=== PATIENT | male | born 1960 | race Caucasian/White ===

== ENCOUNTER 2021-07-20 08:20 | Outpatient (CLI) | payer BC ==
[2021-07-20 09:52] LABS: #Eosinphils 0.1 10x3/uL (0.0-0.5); #Monocytes 0.6 10x3/uL (0.0-1.1); #Neutrophils 4.2 10x3/uL (1.5-8.4); %Basophils 0.6 % (0.0-2.0); %Eosinophils 1.7 % (0.0-6.0); %Lymphocytes 23.9 % (18.0-47.0); %Monocytes 8.7 % (0.0-10.0); %Neutrophils 64.3 % (40.0-75.0); Hemoglobin 14.9 g/dL (13.5-17.5); Mean Corpuscular Hemoglobin 28.8 pg (27.0-33.0); Mean Corpuscular Volume 87.3 fl (81.2-95.1); Mean Platelet Volume 12.2 fl (7.4-10.4); Platelet Count 179 10x3/uL (150-450); RBC Distribution Width 13.7 % (11.5-14.5); Red Blood Cell (RBC) Count 5.18 10x6/uL (4.32-5.72); White Blood Cell (WBC) Count 6.6 10x3/uL (3.5-10.5)
[2021-07-20 10:53] LABS: Anion Gap 12 mmol/L (10-20); BUN (Urea Nitrogen) 17 mg/dL (8.4-25.7); Calc. Creatinine Clearance 0 mL/min (70-130); Calcium 9.5 mg/dL (7.8-10.44); Carbon Dioxide 27 mmol/L (22-29); Chloride 105 mmol/L (98-107); Glucose 84 mg/dL (70-105); Potassium 4.3 mmol/L (3.5-5.1); Sodium 140 mmol/L (136-145)
== END 2021-07-20 08:21 | disposition home or self-care (01) ==
LOC: LABBT 08:20
PROVIDERS: ATTEND Internal Medicine Cardiovascular Disease
DX: Z01.812 Encounter for preprocedural laboratory examination (principal); I33.0 Acute and subacute infective endocarditis; Z20.822 Contact with and (suspected) exposure to COVID-19
CPT/HCPCS: 80048; 85025; U0003; U0005

== ENCOUNTER 2021-07-21 07:58 | Day surgery (SDC) | payer BC ==
[2021-07-20 11:19] VITALS: BMI 31.3
[2021-07-21] MEDS ORDERED: PROPOFOL 200 MG/20 ML VIAL ONE (11:15)
[2021-07-21] MEDS ORDERED: Lidocaine 1% PF 5 ML VIAL ONE (11:15)
== END 2021-07-21 12:15 | disposition home or self-care (01) ==
LOC: SDC 07:58
PROVIDERS: ATTEND Internal Medicine Cardiovascular Disease
PROC: B246ZZ4 Ultrasonography of Right and Left Heart, Transesophageal (ICD-10-PCS; principal; 2021-07-21)
DX: I33.0 Acute and subacute infective endocarditis (principal); I08.8 Other rheumatic multiple valve diseases; I11.9 Hypertensive heart disease without heart failure; R01.1 Cardiac murmur, unspecified; E78.00 Pure hypercholesterolemia, unspecified; Z86.16 Personal history of COVID-19
CPT/HCPCS: 93312; J2704

== ENCOUNTER 2021-10-07 23:42 | Emergency (ER) | payer BC ==
[~2021-10-07 23:42] MED LIST: Iopamidol-370 76% 500 ML 1 ML ONE
[2021-10-07] MEDS ORDERED: Fentanyl CADD 100 ML IV SCH (23:45)
[2021-10-08 00:03] LABS: #Eosinphils 0.2 thou/uL (0.0-0.7); #Monocytes 1.6 thou/uL (0.11-0.59); #Neutrophils 11.7 thou/uL (1.40-6.50); %Basophils 0.1 % (0.0-1.0); %Eosinophils 1.3 % (0.0-10.0); %Lymphocytes 12.8 % (21.0-51.0); %Monocytes 10.1 % (0.0-10.0); %Neutrophils 75.7 % (42.0-75.0); Hemoglobin 9.1 g/dL (14.0-18.0); Mean Corpuscular HGB CONC 32.9 g/dL (32.0-36.0); Mean Corpuscular Hemoglobin 28.3 pg (27.0-31.0); Mean Corpuscular Volume 85.9 fL (78.0-98.0); Mean Platelet Volume 7.2 fL (7.4-10.4); Platelet Count 336 thou/uL (130-400); RBC Distribution Width 12.9 % (11.5-14.5); Red Blood Cell (RBC) Count 3.21 mill/uL (4.70-6.10); White Blood Cell (WBC) Count 15.5 thou/uL (4.8-10.8)
[2021-10-08] MEDS ORDERED: NOREPINEPHRINE 8 MG/250 ML-D5W 250 ML ONE ×2 (00:05→04:51)
[2021-10-08 00:15] LABS: Prothrombin Time 44.3 sec (12.0-14.7)
[2021-10-08 00:21] LABS: INR-International Normal Ratio 4.6
[2021-10-08 00:24] LABS: ALT (SGPT) 15 U/L (8-55); AST (SGOT) 18 U/L (5-34); Alkaline Phosphatase 61 U/L (40-110); Anion Gap 16 mmol/L (10-20); BUN (Urea Nitrogen) 38 mg/dL (8.4-25.7); Bilirubin, Total 0.8 mg/dL (0.2-1.2); Calc. Creatinine Clearance 0 mL/min (70-130); Calcium 7.6 mg/dL (7.8-10.44); Carbon Dioxide 21 mmol/L (22-29); Chloride 100 mmol/L (98-107); Estimated GFR 58; Glucose 177 mg/dL (70-105); Potassium 3.7 mmol/L (3.5-5.1); Sodium 133 mmol/L (136-145)
[2021-10-08 00:25] LABS: Acetaminophen Less than 10.0 mcg/mL (10.0-30.0); Alcohol Less than 10 mg/dL (Less than 10); Salicylate Less than 8.0 mg/dL (15.0-30.0)
[2021-10-08 00:51] LABS: CKMB 1.2 ng/mL (0-6.6)
[2021-10-08 00:51] LABS: Actual Bicarbonate (HCO3a) 22.3 mEq/L (22-28); Analyzer IN Cardio ER; Base Excess (BEa) -2.1 mEq/L (-2.0 to +3.0); CO2 Tension 36.8 mmHg (35.0-45.0); Calcium, Ionized (arterial) 1.04 mmol/L (1.12-1.30); Carboxyhemoglobin (COHb) 0.3 gm% (0.0-3.0); Hemoglobin (Hb) 9.7 g/dL (14.0-18.0); O2 Tension (PaO2), arterial 215.3 mmHg (80.0-100.0); Potassium - ABG Lab 3.51 mmol/L (3.70-5.30)
[2021-10-08 00:54] LABS: Puncture Site RRA
[2021-10-08] MEDS ORDERED: Fentanyl 100 MCG/2 ML VIAL ONE (01:11)
[2021-10-08] MEDS ORDERED: HUM PROTHROMBIN CPLX(PCC)4FACT 1,000 UNIT, Human Prothrombin Complx(PCC) 500 UNIT in Ad... IV SCH (02:00)
[2021-10-08 02:09] LABS: Bacteria/HPF None Seen HPF (None Seen); Squamous Epithelial 0-3 HPF (0-3)
[2021-10-08 02:10] LABS: Amphetamine Not Detected (NotDetected); Barbiturates Screen Not Detected (NotDetected); Benzodiazepine Screen Not Detected (NotDetected); Cocaine Metabolite Screen Not Detected (NotDetected); Methadone Not Detected (NotDetected); Methamphetamine Not Detected (NotDetected); Opiate Screen Detected (NotDetected); Oxycodone Screen Not Detected (NotDetected); Phencyclidine (PCP) Not Detected (NotDetected); THC/Cannabinoid Screen Detected (NotDetected); Tricyclic Screen Not Detected (NotDetected)
[2021-10-08 02:12] LABS: SARS-CoV-2 NAA Rapid Test DETECTED (NotDetected)
[2021-10-08 02:16] LABS: Hemoglobin 7.3 g/dL (14.0-18.0)
[2021-10-08 02:23] LABS: Bilirubin Negative (Negative); Blood, Urine Negative (Negative); Clarity Turbid (Clear); Glucose, Urine (Dipstick) Normal (Negative); Ketone, Urine Negative (Negative); Leukocyte Negative Leu/uL (Negative); Nitrite Negative (Negative); Protein, Urine (Dipstick) 50 mg/dL (Neg-Trace); Specific Gravity, Urine 1.037 (1.002-1.036); Urobilinogen Normal mg/dL (Less than 2); pH, Urine 5.5 (5.0-9.0)
[2021-10-08 02:46] LABS: Lactic Acid 2.5 mmol/L (0.5-2.2)
[2021-10-08] MEDS ORDERED: Calcium Chloride 1 GM/10 ML Abboject SYRINGE ONE ×2 (03:38→04:30)
[2021-10-08] MEDS ORDERED: Pantoprazole 40 MG VIAL ONE (04:04)
[2021-10-08] MEDS ORDERED: Pantoprazole 80 MG, Admixture Fee 1 EACH in Sodium Chloride 0.9% 100 ML IVPB SCH (04:15)
[2021-10-08] MEDS ORDERED: Phytonadione 10 MG/ML AMP ONE (04:30)
[2021-10-08 04:37] LABS: INR-International Normal Ratio 1.5
[2021-10-08 04:47] LABS: Troponin I 0.239 ng/mL (< 0.028)
== END 2021-10-08 05:02 | disposition short-term general hospital (02) ==
LOC: ERS 23:42
DX: K92.2 Gastrointestinal hemorrhage, unspecified (principal); R57.8 Other shock; R55 Syncope and collapse; R79.1 Abnormal coagulation profile
CPT/HCPCS: 36415; 36430; 36556; 36600; 51702; 70450; 71045; 71275; 72125; 74177; 80053; 80306; 80307; 81003; 81015; 82553; 82805; 83605; 83690; 84484; 85014; 85018; 85025; 85610; 86850; 86900; 86901; 87040; 87086; 93005; 94002; 96365; 96366; 96374; 96375; 96376; 99292; C9113; J3010; J3430; J3490; J7168; P9012; P9016; P9035; P9048; P9059; Q9967; U0002

== ENCOUNTER 2022-03-29 13:36 | Outpatient (CLI) | payer BC | END 2022-03-29 13:37 | disposition home or self-care (01) | LOC: ULT 13:36 | PROVIDERS: ATTEND Internal Medicine Cardiovascular Disease | DX: I25.5 Ischemic cardiomyopathy (principal); I07.1 Rheumatic tricuspid insufficiency | CPT/HCPCS: 93306 ==